=== PATIENT | female | born 2000 | race Caucasian/White ===

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

== ENCOUNTER → 2019-05-02 | Outpatient (REF) | payer BC ==
[~2019-05-02] MED LIST: CIPR-249 PO; KETO10TAB PO; birth control PO
[2019-05-02 14:37] LABS: INFLUENZA A AMPLIFICATION NEGATIVE (NEGATIVE); INFLUENZA B AMPLIFICATION NEGATIVE (NEGATIVE)
== END ==
LOC: M LAB REF 13:18
PROVIDERS: ATTEND Internal Medicine
DX: J06.9 Acute upper respiratory infection, unspecified (principal)

== ENCOUNTER → 2020-08-18 | Outpatient (CLI) | payer BC ==
--- NOTE | 2020-08-18 17:09 | REP ---
INDICATION: CONTUSION OF R KNEE COMPARISON: None. TECHNIQUE: Five views right knee. FINDINGS: There is no evidence of acute fracture, dislocation, or intrinsic bone disease.The joint spaces are unremarkable. IMPRESSION: No fracture or dislocation. <Electronically signed by Blue Castillo > 08/18/20 [id number]
== END ==
LOC: M RAD 16:11
PROVIDERS: ATTEND Physician Assistant Medical
DX: S80.01XA Contusion of right knee, initial encounter (principal); X58.XXXA Exposure to other specified factors, initial encounter; Y92.89 Other specified places as the place of occurrence of the external cause; Y93.89 Activity, other specified; Y99.8 Other external cause status

== ENCOUNTER 2020-12-11 08:40 | Emergency (ER) | payer BC ==
[~2020-12-11] VITALS: Ht 162.6 cm; Wt 55.3 kg
[2020-12-11] MEDS ORDERED: BUSP5TA (08:50)
[2020-12-11] MEDS ORDERED: ESTA0.25 (08:50)
[2020-12-11 09:29] LABS: BASO # 0.1 10^3/uL (0.0-0.2); BASO % 0.4 % (0.0-1.0); EOS # 0.1 10^3/uL (0.0-0.5); EOS % 0.9 % (0.0-3.0); HEMATOCRIT 40.9 % (36.0-47.0); HEMOGLOBIN 13.3 g/dl (12.0-15.5); LYMPH % 15.1 % (24.0-44.0); MEAN CORPUSCULAR HGB CONC 32.5 g/dl (32.0-36.5); MEAN CORPUSCULAR VOLUME 89.1 fl (80.0-96.0); MONO % 7.9 % (2.0-8.0); NEUTROPHILS # 9.7 10^3/uL (1.5-8.5); NEUTROPHILS % 75.2 % (36.0-66.0); PLATELET COUNT, AUTOMATED 319 10^3/uL (150-450); RED BLOOD COUNT 4.59 10^6/uL (4.00-5.40); WHITE BLOOD COUNT 12.9 10^3/uL (4.0-10.0)
[2020-12-11] MEDS ORDERED: KETOROLAC 30 MG/ML 1ML VIAL IV ONE (09:50)
[2020-12-11 09:51] LABS: ALBUMIN 3.4 GM/DL (3.2-5.2); ALT/SGPT 23 U/L (12-78); BILIRUBIN,DIRECT < 0.1 MG/DL (0.0-0.2); BILIRUBIN,TOTAL 0.2 MG/DL (0.2-1.0); BLOOD UREA NITROGEN 9 MG/DL (7-18); CALCIUM LEVEL 8.9 MG/DL (8.5-10.1); CARBON DIOXIDE LEVEL 26 MEQ/L (21-32); CHLORIDE LEVEL 110 MEQ/L (98-107); CREATININE FOR GFR 0.89 MG/DL (0.55-1.30); GLOMERULAR FILTRATION RATE > 60.0 (>60); GLUCOSE, FASTING 93 MG/DL (70-100); LIPASE 109 U/L (73-393); POTASSIUM SERUM 3.7 MEQ/L (3.5-5.1); SODIUM LEVEL 141 MEQ/L (136-145); TOTAL PROTEIN 7.4 GM/DL (6.4-8.2)
--- NOTE | 2020-12-11 10:20 | REP ---
INDICATION: flank pain on left COMPARISON: Comparison CT study September 15, 2018. TECHNIQUE: Helical scanning is acquired and 3 mm axial images were reformatted. Coronal and sagittal MPR images were generated and reviewed. 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 Normal bowel gas pattern. The lung bases are clear on axial CT images. The liver and the spleen are normal in size homogeneous in texture. Normal adrenal glands are observed bilaterally. No abnormality is noted in the pancreas. There is no evidence hydronephrosis on either side. There are 2 tiny foci calcification in the left kidney consistent with intrarenal nephrolithiasis, these 1 mm foci are located in the lower pole and midpole region. There is no evidence of ureteral calculus or bladder calculus. No hydronephrosis is seen. Small and large intestinal bowel loops are unremarkable. No abdominal wall defect is seen. No evidence of free air or abnormal abdominal or pelvic fluid collection. No bony destructive lesion. IMPRESSION: Two tiny intrarenal calculi left kidney. No hydronephrosis or ureteral stone. Otherwise negative. <Electronically signed by Gamaliel Urban > 12/11/20 [id number]
[2020-12-11] MEDS ORDERED: KETO10TAB PO (11:42)
[2020-12-11] MEDS ORDERED: BACT800T5 PO (11:49)
[2020-12-11] MEDS ORDERED: PYRI1TAB5 PO (11:51)
[2020-12-11 12:14] VITALS: BP 140/92
== END 2020-12-11 12:15 | disposition home or self-care (01) ==
LOC: M ED 08:40
DX: N39.0 Urinary tract infection, site not specified (principal); R31.9 Hematuria, unspecified; R03.0 Elevated blood-pressure reading, without diagnosis of hypertension; N20.0 Calculus of kidney; R10.9 Unspecified abdominal pain; Z87.448 Personal history of other diseases of urinary system; F41.9 Anxiety disorder, unspecified; Z79.3 Long term (current) use of hormonal contraceptives
CPT/HCPCS: 36415; 74176; 80048; 80076; 81001; 83690; 84702; 85025; 96374; 99284; J1885

== ENCOUNTER → 2021-02-07 | Outpatient (REF) | payer BC ==
[~2021-02-07] MED LIST changes: +BACT800T5 PO; +BUSP5TA; +ESTA0.25; +PYRI1TAB5 PO
[2021-02-07 20:38] LABS: GC DNA AMPLIFICATION NEGATIVE (NEGATIVE)
== END ==
LOC: M LAB REF 16:36
PROVIDERS: ATTEND Internal Medicine
DX: N89.9 Noninflammatory disorder of vagina, unspecified (principal); N89.8 Other specified noninflammatory disorders of vagina

== ENCOUNTER → 2021-05-09 | Outpatient (REF) | payer BC ==
[2021-05-09 17:50] LABS: GC DNA AMPLIFICATION NEGATIVE (NEGATIVE)
== END ==
LOC: M LAB REF 16:05
PROVIDERS: ATTEND Internal Medicine
DX: N76.0 Acute vaginitis (principal)

== ENCOUNTER → 2022-01-17 | Outpatient (REF) | payer OTHER | LOC: M LAB REF 17:03 | PROVIDERS: ATTEND Nurse Practitioner Adult Health | DX: N76.0 Acute vaginitis (principal) ==

== ENCOUNTER → 2022-05-05 | Outpatient (REF) | payer OTHER ==
[2022-05-05 21:26] LABS: APPEARANCE, URINE MANUAL HAZY (CLEAR); BILIRUBIN, URINE MANUAL NEGATIVE (NEGATIVE); BLOOD URINE MANUAL TRACE (NEGATIVE); COLOR, URINE MANUAL LT YELLOW (YELLOW); GLUCOSE, URINE (UA) MANUAL NEGATIVE (NEGATIVE); KETONE, URINE MANUAL NEGATIVE (NEGATIVE); NITRITE, URINE MANUAL POSITIVE (NEGATIVE); PROTEIN, URINE MANUAL NEGATIVE (NEGATIVE); SPECIFIC GRAVITY,URINE MANUAL 1.015 (1.002-1.035); UROBILINOGEN, URINE MANUAL NORMAL (NORMAL)
[2022-05-05 21:27] LABS: LEUKOCYTE ESTERASE, URINE MAN TRACE (NEGATIVE)
[2022-05-05 21:41] LABS: BACTERIA, URINE LARGE AMOUNT; HYALINE CAST, URINE NONE SEEN /lpf (0-1); RBC, URINE 0-1 /hpf (0-3); SQUAMOUS EPITHELIAL CELL URINE LARGE AMOUNT /hpf (SMALL AMT)
== END ==
LOC: M LAB REF 21:19
PROVIDERS: ATTEND Physician Assistant Medical
DX: N39.0 Urinary tract infection, site not specified (principal); N91.2 Amenorrhea, unspecified

== ENCOUNTER 2022-11-16 05:08 | Emergency (ER) | payer OTHER, SELFPAY ==
[~2022-11-16] VITALS: Ht 160 cm; Wt 56.0 kg
[2022-11-16 05:56] VITALS: TEMP 98.7
[2022-11-16 06:05] LABS: HEMOGLOBIN 14.1 g/dl (12.0-15.5); MEAN CORPUSCULAR HEMOGLOBIN 27.5 pg (27.0-33.0); MEAN CORPUSCULAR HGB CONC 32.8 g/dl (32.0-36.5); PLATELET COUNT, AUTOMATED 364 10^3/uL (150-450); RED BLOOD COUNT 5.12 10^6/uL (4.00-5.40); WHITE BLOOD COUNT 9.2 10^3/uL (4.0-10.0)
[2022-11-16] MEDS ORDERED: ACETAMINOPHEN TAB 650MG DOSE (2X325MG) PO ONE (06:25)
[2022-11-16] MEDS ORDERED: IBUPROFEN 600MG TAB PO ONE (06:25)
[2022-11-16] MEDS ORDERED: ONDANSETRON 4MG ORAL DISINTEGRATING TAB PO ONE (06:25)
[2022-11-16 06:26] LABS: BLOOD UREA NITROGEN 7 MG/DL (9-23); CARBON DIOXIDE LEVEL 22 MMOL/L (20-31); CHLORIDE LEVEL 109 MMOL/L (98-107); CREATININE FOR GFR 0.71 MG/DL (0.55-1.30); GLOMERULAR FILTRATION RATE > 60.0 (>60); GLUCOSE, FASTING 108 MG/DL (60-100); POTASSIUM SERUM 3.7 MMOL/L (3.5-5.1); SODIUM LEVEL 143 MMOL/L (136-145)
[2022-11-16 06:48] LABS: ATYPICAL LYMPH 8 % (0-5); LYMPHOCYTES 29 % (16-44); MONOCYTES 10 % (0-5); NEUTROPHILS 51 % (28-66); PLASMA CELL 1 % (0-0)
[2022-11-16 06:50] LABS: PLATELET ESTIMATE NORMAL (NORMAL)
[2022-11-16] MEDS ORDERED: IBUP-1022 PO (07:57)
[2022-11-16] MEDS ORDERED: ONDA4TAB6 PO (07:57)
[2022-11-16 08:38] VITALS: O2SAT 98
[2022-11-16 08:42] VITALS: BP 106/76
== END 2022-11-16 08:49 | disposition home or self-care (01) ==
LOC: M ED 05:08
DX: S06.0X0A Concussion without loss of consciousness, initial encounter (principal); S80.811A Abrasion, right lower leg, initial encounter; Y04.2XXA Assault by strike against or bumped into by another person, initial encounter; Y92.009 Unspecified place in unspecified non-institutional (private) residence as the place of occurrence of the external cause; Y93.89 Activity, other specified; Y99.8 Other external cause status; F41.9 Anxiety disorder, unspecified; Z79.899 Other long term (current) drug therapy; Z79.3 Long term (current) use of hormonal contraceptives

== ENCOUNTER → 2023-02-02 | Outpatient (REF) | payer OTHER ==
[~2023-02-02] MED LIST changes: +IBUP-1022 PO; +ONDA4TAB6 PO
== END ==
LOC: M LAB REF 16:32
PROVIDERS: ATTEND Student in an Organized Health Care Education/Training Program
DX: R30.0 Dysuria (principal)

== ENCOUNTER → 2023-02-04 | Outpatient (CLI) | payer OTHER | LOC: M RAD 15:32 | PROVIDERS: ATTEND Student in an Organized Health Care Education/Training Program | DX: R30.0 Dysuria (principal); N20.0 Calculus of kidney ==

== ENCOUNTER → 2023-07-10 | Outpatient (REF) | payer OTHER | LOC: M LAB REF 16:36 | PROVIDERS: ATTEND Internal Medicine | DX: B37.31 Acute candidiasis of vulva and vagina (principal) ==

== ENCOUNTER 2023-10-18 00:25 | Emergency (ER) | payer OTHER, SELFPAY ==
[~2023-10-18] VITALS: Ht 165.1 cm; Wt 59.1 kg
[~2023-10-18 00:25] MED LIST changes: +ONDA-282 PO; -ONDA4TAB6 PO
[2023-10-18] MEDS: NS 500 ML IV ONE (02:00)
[2023-10-18 02:40] VITALS: BP 147/89; TEMP 98; O2SAT 100
== END 2023-10-18 02:53 | disposition home or self-care (01) ==
LOC: M ED 00:25 → EDBD 00:25 → M ED 02:53
DX: F19.10 Other psychoactive substance abuse, uncomplicated (principal); F10.129 Alcohol abuse with intoxication, unspecified; R11.2 Nausea with vomiting, unspecified; F41.9 Anxiety disorder, unspecified; F32.A Depression, unspecified; F17.200 Nicotine dependence, unspecified, uncomplicated

== ENCOUNTER 2023-11-13 02:36 | Emergency (ER) | payer SELFPAY ==
[~2023-11-13] VITALS: Ht 160 cm; Wt 57.0 kg
[2023-11-13 03:20] LABS: HEMATOCRIT 44.5 % (36.0-47.0); HEMOGLOBIN 14.8 g/dl (12.0-15.5); MEAN CORPUSCULAR HEMOGLOBIN 28.6 pg (27.0-33.0); MEAN CORPUSCULAR HGB CONC 33.3 g/dl (32.0-36.5); MEAN CORPUSCULAR VOLUME 86.1 fl (80.0-96.0); PLATELET COUNT, AUTOMATED 395 10^3/uL (150-450); RED BLOOD COUNT 5.17 10^6/uL (4.00-5.40); WHITE BLOOD COUNT 8.8 10^3/uL (4.0-10.0)
[2023-11-13 03:42] LABS: AMPHETAMINES LEVEL URINE NEGATIVE (NEGATIVE); BARBITURATES URINE NEGATIVE (NEGATIVE); BENZODIAZEPINES URINE NEGATIVE (NEGATIVE); CANNABINOIDS URINE NEGATIVE (NEGATIVE); METHADONE URINE NEGATIVE (NEGATIVE); OPIATES URINE NEGATIVE (NEGATIVE); PHENCYCLIDINE URINE NEGATIVE (NEGATIVE)
[2023-11-13 03:43] LABS: COCAINE METABOLITE URINE POSITIVE (NEGATIVE)
[2023-11-13 03:44] LABS: ETHYL ALCOHOL (ETHANOL) 0.184 % (0.000-0.010)
[2023-11-13 03:46] LABS: ALKALINE PHOSPHATASE 87 U/L (46-116); ALT/SGPT 21 U/L (7.0-40); AST/SGOT 16 U/L (<34); BILIRUBIN,DIRECT < 0.1 MG/DL (<0.4); BILIRUBIN,TOTAL 0.2 MG/DL (0.3-1.2); BLOOD UREA NITROGEN 6 MG/DL (9-23); CALCIUM LEVEL 9.2 MG/DL (8.5-10.1); CARBON DIOXIDE LEVEL 24 MMOL/L (20-31); CHLORIDE LEVEL 107 MMOL/L (98-107); CREATININE FOR GFR 0.81 MG/DL (0.55-1.30); GLOMERULAR FILTRATION RATE > 60.0 (>60); GLUCOSE, FASTING 106 MG/DL (60-100); POTASSIUM SERUM 4.1 MMOL/L (3.5-5.1); SALICYLATE LEVEL < 3.0 MG/DL (<30); SODIUM LEVEL 140 MMOL/L (136-145); TOTAL PROTEIN 8.4 G/DL (5.7-8.2)
[2023-11-13 03:47] LABS: HCG, SERUM QUALITATIVE NEGATIVE (NEGATIVE)
[2023-11-13 03:48] LABS: THYROID STIMULATING HORMONE 1.213 uIU/ML (0.55-4.78)
[2023-11-13 04:20] VITALS: BP 166/98; TEMP 98.9; O2SAT 96
== END 2023-11-13 04:22 | disposition home or self-care (01) ==
LOC: M ED 02:36
DX: F43.0 Acute stress reaction (principal); F17.200 Nicotine dependence, unspecified, uncomplicated; F19.10 Other psychoactive substance abuse, uncomplicated; F12.10 Cannabis abuse, uncomplicated; F10.10 Alcohol abuse, uncomplicated; Z79.83 Long term (current) use of bisphosphonates; Z79.899 Other long term (current) drug therapy

== ENCOUNTER 2024-04-21 06:21 | Emergency (ER) | payer SELFPAY ==
[~2024-04-21] VITALS: Ht 160 cm; Wt 58.1 kg
[2024-04-21] MEDS: ACETAMINOPHEN 325 MG TAB PO ONE (08:10)
[2024-04-21 08:40] VITALS: BP 156/95; TEMP 96.5; O2SAT 96
== END 2024-04-21 08:48 | disposition home or self-care (01) ==
LOC: EDBD 06:21 → M ED 06:21
DX: S09.90XA Unspecified injury of head, initial encounter (principal); H72.91 Unspecified perforation of tympanic membrane, right ear; Y04.0XXA Assault by unarmed brawl or fight, initial encounter; Y92.009 Unspecified place in unspecified non-institutional (private) residence as the place of occurrence of the external cause; Y93.89 Activity, other specified; Y99.9 Unspecified external cause status; Z79.899 Other long term (current) drug therapy; Z79.83 Long term (current) use of bisphosphonates

== ENCOUNTER 2024-12-12 16:28 | Emergency (ER) | payer SELFPAY ==
[~2024-12-12] VITALS: Ht 160 cm; Wt 58.0 kg
[~2024-12-12 16:28] MED LIST changes: -IBUP-1022 PO; +IBUP600T42 PO
[2024-12-12] MEDS ORDERED: ACET-683 PO (16:38)
[2024-12-12 17:53] LABS: BASO # 0.1 10^3/uL (0.0-0.2); BASO % 0.5 % (0.0-1.0); EOS # 0.1 10^3/uL (0.0-0.5); EOS % 0.4 % (0.0-3.0); LYMPH # 1.8 10^3/uL (1.5-5.0); LYMPH % 12.6 % (24.0-44.0); MONO # 1.6 10^3/uL (0.0-0.8); MONO % 11.0 % (2.0-8.0); NEUTROPHILS # 10.8 10^3/uL (1.5-8.5); NEUTROPHILS % 75.2 % (36.0-66.0); PLATELET COUNT, AUTOMATED 295 10^3/uL (150-450)
[2024-12-12 17:54] LABS: KETONE, URINE AUTO RFX NEGATIVE (NEGATIVE); MUCUS, URINE RFX LARGE (NEGATIVE); RBC, URINE AUTO RFX TNTC /HPF (0-3); SQUAM EPITHELIAL CELL UR AURFX 0 /HPF (0-6)
[2024-12-12 17:56] LABS: LEUKOCYTE ESTERASE UR AUTO RFX 3+ (NEGATIVE); NITRITE, URINE AUTO RFX POSITIVE (NEGATIVE); WBC, URINE AUTO RFX TNTC /HPF (0-3)
[2024-12-12 18:16] LABS: CALCIUM LEVEL 10.2 MG/DL (8.5-10.1); CARBON DIOXIDE LEVEL 28 MMOL/L (20-31); CHLORIDE LEVEL 103 MMOL/L (98-107); CREATININE FOR GFR 1.00 MG/DL (0.55-1.30); GLOMERULAR FILTRATION RATE 80.2 (>60); HCG, SERUM QUALITATIVE NEGATIVE (NEGATIVE); POTASSIUM SERUM 3.7 MMOL/L (3.5-5.1); SODIUM LEVEL 139 MMOL/L (136-145)
[2024-12-12] MEDS: NS (Normal Saline) 0.9% 1,000 ML IV ONE (18:55)
[2024-12-12] MEDS: cefTRIAXone SOD 1 GM in DEXTROSE 5% (D5W) ADV/MINI-BAG 50 ML IV ONE (18:56)
[2024-12-12 20:30] VITALS: BP 167/96; TEMP 98.7
[2024-12-12] MEDS ORDERED: SULF1TAB23 PO (20:33)
[2024-12-12 20:36] VITALS: O2SAT 97
== END 2024-12-12 20:40 | disposition home or self-care (01) ==
LOC: M ED 16:28
DX: N10 Acute pyelonephritis (principal); I10 Essential (primary) hypertension; Z87.442 Personal history of urinary calculi; Z79.1 Long term (current) use of non-steroidal anti-inflammatories (NSAID); Z79.899 Other long term (current) drug therapy; Z79.2 Long term (current) use of antibiotics
CPT/HCPCS: 74176; 80048; 81001; 83605; 84703; 85025; 86140; 87088; 87186; 96365; 99284; J0696